=== PATIENT | female | born 1975 | race Caucasian/White ===

== ENCOUNTER 2017-12-07 12:42 | Emergency (ER) | payer SELFPAY ==
[2017-12-07] MEDS ORDERED: Ibuprofen 200 MG TAB ONE (14:15)
--- NOTE | 2017-12-07 14:21 | RAD ---
LEFT SHOULDER THREE VIEWS: Indication: Fall with left shoulder injury and pain. FINDINGS: There is no fracture or dislocation. Left acromioclavicular joint is maintained. IMPRESSION: No acute osseous abnormality of the left shoulder. POS: [facility]
== END 2017-12-07 14:21 | disposition home or self-care (01) ==
LOC: ERS 12:42
DX: S14.3XXA Injury of brachial plexus, initial encounter (principal); F17.210 Nicotine dependence, cigarettes, uncomplicated; W17.89XA Other fall from one level to another, initial encounter
CPT/HCPCS: 93005

== ENCOUNTER 2018-07-26 13:21 | Emergency (ER) | payer SELFPAY ==
[2018-07-26] MEDS ORDERED: cefTRIAXone\\ROCEPHIN 500 MG VIAL ONE (15:48)
[2018-07-26] MEDS ORDERED: Lidocaine 1% PF 5 ML VIAL ONE (15:49)
[2018-07-26] MEDS ORDERED: cefTRIAXone\\ROCEPHIN 1 GM VIAL ONE (15:49)
== END 2018-07-26 16:15 | disposition home or self-care (01) ==
LOC: ERS 13:21
DX: S40.861A Insect bite (nonvenomous) of right upper arm, initial encounter (principal); S70.361A Insect bite (nonvenomous), right thigh, initial encounter; F17.210 Nicotine dependence, cigarettes, uncomplicated; W57.XXXA Bitten or stung by nonvenomous insect and other nonvenomous arthropods, initial encounter
CPT/HCPCS: 96372; J0696; J2001

== ENCOUNTER 2018-08-06 01:01 | Emergency (ER) | payer SELFPAY ==
[2018-08-06] MEDS ORDERED: Bacitracin Zinc 1 Packet ONE (01:54)
--- NOTE | 2018-08-06 08:30 | RAD ---
RIGHT KNEE 4 VIEWS: Date: 08/06/18 PROVIDED CLINICAL HISTORY: Right knee laceration. FINDINGS: There is no evidence for radiopaque foreign body. There is no evidence for fracture or other acute os seous abnormality. If there is persistent clinical concern, conservative management and follow-up neeraj ging are advised. IMPRESSION: As above. POS: OFF
== END 2018-08-06 02:19 | disposition home or self-care (01) ==
LOC: SCSER 01:01
DX: S81.011A Laceration without foreign body, right knee, initial encounter (principal); F32.9 Major depressive disorder, single episode, unspecified; F17.210 Nicotine dependence, cigarettes, uncomplicated; W26.8XXA Contact with other sharp object(s), not elsewhere classified, initial encounter
CPT/HCPCS: 12001